=== PATIENT | female | born 1960 | race Caucasian/White ===

== ENCOUNTER 2019-11-15 16:12 | Emergency (ER) | payer MEDICARE ==
[~2019-11-15] VITALS: Ht 165.1 cm; Wt 74.6 kg
[2019-11-15 16:17] VITALS: Ht 165.1 cm; Wt 74.6 kg
[2019-11-15] MEDS ORDERED: ZYRTEC10 MG PO (16:19)
[2019-11-15] MEDS ORDERED: VITAMIN C500 M1 PO (16:19)
[2019-11-15] MEDS ORDERED: TOZAL SOFTGEL1 EACH PO (16:19)
[2019-11-15 17:12] LABS: APTT 30.4 SECONDS (22.8-39.4); INR 0.96 (0.85-1.17); PROTIME 12.7 SECONDS (11.6-15.0)
[2019-11-15 17:13] LABS: BASOPHILS 0.5 % (0-2); EOSINOPHILS 3.9 % (0-7); HEMATOCRIT 42.1 % (36.0-48.0); IMMATURE GRANULOCYTES 0.1 % (0-5); LYMPHOCYTES 21.8 % (15-50); MCH 28.9 pg (26.0-34.0); MCHC 33.3 g/dL (31.0-37.0); MCV 86.8 fL (80.0-100.0); MEAN PLATELET VOLUME 9.8 fL (7.4-10.4); NEUTROPHILS 64.7 % (40-80); PLATELET COUNT 252 10x3/uL (130-400); RBC 4.85 10x6/uL (4.00-5.40); RDW 12.7 % (11.5-14.5); WBC 7.4 10x3/uL (4.8-10.8)
[2019-11-15 17:25] LABS: CALC OSMOLALITY 281 mosm/kg (275-300); CALCIUM 8.9 mg/dL (8.5-10.1); CARBON DIOXIDE 27.1 mmol/L (21.0-32.0); CHLORIDE - SERUM 106 mmol/L (98-107); CREATININE - SERUM 0.8 mg/dL (0.6-1.3); GLUCOSE 92 mg/dL (74-106); POTASSIUM - SERUM 3.5 mmol/L (3.5-5.1); SODIUM 142 mmol/L (136-145); UREA NITROGEN 11 mg/dL (7-18); eGFR NON AFRICAN AMERICAN 78 mL/min (90-120)
[2019-11-15 17:42] LABS: ALKALINE PHOSPHATASE 79 U/L (30-120); ALT (SGPT) 41 U/L (10-68); BILIRUBIN - TOTAL 0.26 mg/dL (0.2-1.3); CREATINE KINASE 88 UL (21-215); PROTEIN - SERUM 7.5 g/dL (6.4-8.2)
[2019-11-15 17:47] LABS: TROPONIN-I < 0.017 ng/mL (0.000-0.060)
[2019-11-15 18:41] VITALS: BP 166/86
== END 2019-11-15 18:41 | disposition home or self-care (01) ==
LOC: D.ER 16:12
PROVIDERS: Family Medicine
DX: R20.2 Paresthesia of skin (principal); R07.9 Chest pain, unspecified